=== PATIENT | male | born 1955 | race Caucasian/White ===

== ENCOUNTER 2016-06-25 19:36 | Emergency (ER) | payer MEDICARE ==
[~2016-06-25] VITALS: Ht 180.3 cm; Wt 95.3 kg
[~2016-06-25 19:36] MED LIST: ASPI-231 PO; BUPR75TA4 PO; CARV6.25 PO; CHOL500021 PO; DIVA500T53 PO; LAMO100T44 PO; PRO20T PO; QUET100T46 PO; QUET200T30 PO; SERT-160 PO; TRAZ100T2 PO; VALP250S16 PO; ZIPR80CA8 PO
[2016-06-25 19:45] VITALS: BP 139/93
[2016-06-25] MEDS ORDERED: HYDROmorphone HCL 2 MG/ML VL IM ONE (23:30)
[2016-06-25] MEDS ORDERED: ONDANSETRON HCL 4 MG/2 ML VIAL IM ONE (23:30)
[2016-06-26] MEDS ORDERED: BACITRACIN-POLYMYXIN B TOPICAL OINT UD TOP ONE ×2 (00:12→00:15)
== END 2016-06-26 02:07 | disposition home or self-care (01) ==
LOC: EDUNIT# 19:36 → EDBD 19:36 → ER 19:44
DX: S90.31XA Contusion of right foot, initial encounter (principal); S80.02XA Contusion of left knee, initial encounter; S40.011A Contusion of right shoulder, initial encounter; S80.211A Abrasion, right knee, initial encounter; S90.812A Abrasion, left foot, initial encounter; I25.10 Atherosclerotic heart disease of native coronary artery without angina pectoris; R51 Headache; J44.9 Chronic obstructive pulmonary disease, unspecified; E78.5 Hyperlipidemia, unspecified; I25.2 Old myocardial infarction; Z95.0 Presence of cardiac pacemaker; I50.9 Heart failure, unspecified; F17.210 Nicotine dependence, cigarettes, uncomplicated; V09.20XA Pedestrian injured in traffic accident involving unspecified motor vehicles, initial encounter; Y93.89 Activity, other specified; Y99.8 Other external cause status; Y92.89 Other specified places as the place of occurrence of the external cause; Z79.899 Other long term (current) drug therapy
CPT/HCPCS: 70450; 73020; 73562; 73620; 96372; 99284; J1170; J2405

== ENCOUNTER 2024-06-30 23:51 | Emergency (ER) | payer MEDICARE, OTHER ==
[~2024-06-30] VITALS: Ht 182.9 cm; Wt 113.6 kg
[~2024-06-30 23:51] MED LIST changes: -ASPI-231 PO; +ASPI1TAB20 PO; -CARV6.25 PO; +CARV6.2517 PO; +DIVA-91 PO; -DIVA500T53 PO; -QUET100T46 PO; +QUET100T47 PO; +TRAZ-228 PO; -TRAZ100T2 PO; -VALP250S16 PO; +VALP250S19 PO; +ZIPR80CA43 PO; -ZIPR80CA8 PO
[2024-07-01 00:26] LABS: Basophils # (auto) 0 10 ^3/uL (0-0.2); Basophils % (auto) 0.5 % (0.0-2.0); Eosinophils # (auto) 0.5 10 ^3/uL (0-0.8); Eosinophils % (auto) 5.1 % (0.0-7.0); Hematocrit 43.9 % (41.0-53.0); Hemoglobin 15.1 g/dL (13.5-17.5); Lymphocytes # (auto) 1.3 10 ^3/uL (0.4-5.4); Lymphocytes % (auto) 13.4 % (10.0-50.0); Mean Corpuscular Hemoglobin 29.6 pg (28.0-32.0); Mean Corpuscular Hgb Conc. 34.5 g/dL (32.0-36.0); Mean Corpuscular Volume 85.8 fL (80.0-100.0); Monocytes # (auto) 0.6 10 ^3/uL (0-1.3); Monocytes % (auto) 6.4 % (0.0-12.0); Neutrophils # (auto) 7.3 10 ^3/uL (1.6-8.6); Neutrophils % (auto) 74.6 % (37.0-80.0); Platelet Count (auto) 427 10^3/uL (140-450); Red Blood Cells 5.12 10^6/uL (4.5-5.90); White Blood Cell 9.8 10^3/uL (4.4-10.8)
[2024-07-01 00:42] LABS: Alanine Aminotransferase 24 U/L (7-40); Albumin 4.8 g/dL (3.2-4.8); Alkaline Phosphatase 73 U/L (46-116); Anion Gap 6 (5-15); Aspartate Aminotransferase 13 U/L (13-40); BUN/Creatinine Ratio 16.8 (10.0-20.0); Bilirubin, Total 0.5 mg/dL (0.2-1.0); Blood Urea Nitrogen 16 mg/dL (9-23); Calcium 9.6 mg/dL (8.7-10.4); Carbon Dioxide 28 mmol/L (20-31); Chloride 104 mmol/L (98-107); Potassium 4.4 mmol/L (3.5-5.1); Sodium 138 mmol/L (136-145); Total Protein 6.9 g/dL (5.7-8.2)
[2024-07-01 00:56] LABS: Glucose 113 mg/dL (74-106)
--- NOTE | 2024-07-01 02:21 | ED.PDOC ---
History of Present Illness HPI Comments 68-year-old male brought in by EMS. Patient states he was having hard time sleeping because he felt like he was choking. States his anxiety started to kick in and made him feel more short of breath. 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 States they cut off half portion of his tongue. Since then he has been having trouble with swallowing. States he does see an ENT, he does have an appointment in August. Patient denies any pain with swallowing. States he is typically able to eat but he has not drank fluids while he eats to help the food go down. Chief Complaint: Shortness of Breath Time Seen by MD: 23:59 Primary Care Provider: NONE Reviewed Notes: Nurses Notes Allergies: Coded Allergies: NO KNOWN ALLERGIES (Unverified , 05/15/14) Home Meds Active Scripts Ziprasidone Hydrochloride (Geodon) 80 Mg Cap, 40 MG PO BID, #60 CAP Prov:CHERRY PAL MD 02/01/15 Lamotrigine (Lamotrigine) 100 Mg Tab, 100 MG PO HS, #1 TAB Prov:ERICA MURPHY N.P. 05/16/14 Bupropion Hcl (Wellbutrin) 75 Mg Tab, 100 MG PO DAILY, #1 TAB Prov:ERICA MURPHY N.P. 05/16/14 Reported Medications Quetiapine Fumerate (QUETIAPINE FUMARATE) 100 Mg Tab, 25 MG PO TID for 30 Days, MG 04/30/16 Trazodone Hcl (Trazodone Hcl) 100 Mg Tab, 1 TAB PO HS, #30 TAB 1 Refill 04/29/16 Sertraline Hcl (Sertraline Hcl) 100 Mg Tab, 200 MG PO DAILY, TAB 04/29/16 Cholecalciferol (VITAMIN D) 5,000 Unit Tab, 5000 PO DAILY, TAB 04/29/16 Propranolol HCl (Propranolol HCl) 20 Mg Tab, 20 MG PO BID, TAB discuss with primary MD 04/29/16 Quetiapine Fumerate (Seroquel) 200 Mg Tab, 200 MG PO HS, TAB 04/29/16 Valproate Sodium (Valproic Acid) 250 Mg/5 Ml Syp, 250 MG PO HS, SYP 04/29/16 Divalproex Sodium (Depakote) 500 Mg Tab, 2 TAB PO QHSP, #60 TAB 1 Refill 04/29/16 Carvedilol (Coreg) 6.25 Mg Tab, 1 TAB PO BID, #180 TAB 1 Refill 05/16/14 Aspirin (Aspir-81) 81 Mg Tab, 1 TAB PO DAILY, #30 TAB 5 Refills 05/16/14 Information Source: Patient Mode of Arrival: EMS Past Medical History PAST MEDICAL HISTORY: Anxiety, CAD, CHF, COPD, Dementia, Depression, High Lipids, Liver, HI Surgical History: Pacemaker Family History Family History (Other): PNEUMONIA Social History Smoker: Cigarettes, Chew, Less Than 1 Pack/Day Alcohol: Occasionally Drugs: Denies Drug Use Lives In: Home Constitutional: denies: chills, diaphoresis, fatigue, fever, malaise, sweats, weakness, others EENTM: reports: throat swelling; denies: blurred vision, double vision, ear bleeding, ear discharge, ear drainage, ear pain, ear ringing, eye pain, eye redness, hearing loss, mouth pain, mouth swelling, nasal discharge, nose bleeding, nose congestion, nose pain, photophobia, tearing, throat pain, voice changes, others Respiratory: denies: cough, hemoptysis, orthopnea, SOB at rest, shortness of breath, SOB with excertion, stridor, wheezing, others Cardiovascular: denies: chest pain, dizzy spells, diaphoresis, Dyspnea on exertion, edema, irregular heart beat, left arm pain, lightheadedness, palpitations, PND, syncope, others Gastrointestinal: denies: abdomen distended, abdominal pain, blood streaked bowels, constipated, diarrhea, dysphagia, difficulty swallowing, hematemesis, melena, nausea, poor appetite, poor fluid intake, rectal bleeding, rectal pain, vomiting, others Genitourinary: denies: burning, dysuria, flank pain, frequency, hematuria, incontinence, penile discharge, penile sore, pain, testicle pain, testicle swelling, urgency, others Neurological: denies: dizziness, fainting, headache, left sided numbness, left sided weakness, numbness, paresthesia, pre-existing deficit, right sided numbness, right sided weakness, seizure, speech problems, tingling, tremors, weakness, others Musculoskeletal: denies: back pain, gout, joint pain, joint swelling, muscle pain, muscle stiffness, neck pain, others Integumetry: denies: bruises, change in color, change in hair/nails, dryness, laceration, lesions, lumps, rash, wounds, others Allergic/Immunocompromised: denies: Difficulty Healing, Frequent Infections, Hives, Itching, others Physical Exam General Appearance: No Apparent Distress, Normal HEENT: Normal ENT Inspection, Pharynx Normal, TMs Normal, Other (Partial tongue removal) Neck: Full Range of Motion, Non-Tender, Normal, Normal Inspection Respiratory: Chest Non-Tender, Lungs Clear, No Accessory Muscle Use, No Respiratory Distress, Normal Breath Sounds Cardiovascular: No Edema, No JVD, No Murmur, No Gallop, Normal Peripheral Pulses, Regular Rate/Rhythm Breast Exam: Deferred Gastrointestinal: No Organomegaly, Non Tender, No Pulsatile Mass, Normal Bowel Sounds, Soft Genitalia: Deferred Pelvic: Deferred Rectal: Deferred Extremities: No calf tenderness, Normal capillary refill, Normal inspection, Normal range of motion, Non-tender, No pedal edema Musculoskeletal : Apperance: Normal Neurologic: Alert, cnc grinder II-XII nml as Tested, No Motor Deficits, Normal Affect, Normal Mood, No Sensory Deficits Cerebellar Function: Normal Reflexes: Normal Skin: Dry, Normal Color, Warm Lymphatic: No Adenopathy Was a procedure done? Was a procedure done?: No Differential Dx Considerations may include: Dry mouth, foreign body in the airway, pharyngitis, X-Ray, Labs, Meds, VS Vital Signs Date Time Temp Pulse Resp B/P (MAP) Pulse Ox O2 Delivery O2 Flow Rate FiO2 07/01/24 00:03 98.8 95 20 155/88 (110) 100 Lab Test 07/01/24 00:12 Range/Units White Blood Count 9.8 4.4-10.8 10^3/uL Red Blood Count 5.12 4.5-5.90 10^6/uL Hemoglobin 15.1 13.5-17.5 g/dL Hematocrit 43.9 41.0-53.0 % Mean Corpuscular Volume 85.8 80.0-100.0 fL Mean Corpuscular Hemoglobin 29.6 28.0-32.0 pg Mean Corpuscular Hemoglobin Concent 34.5 32.0-36.0 g/dL Red Cell Distribution Width 15.0 H 11.8-14.3 % Platelet Count 427 140-450 10^3/uL Mean Platelet Volume 6.8 L 6.9-10.8 fL Neutrophils (%) (Auto) 74.6 37.0-80.0 % Lymphocytes (%) (Auto) 13.4 10.0-50.0 % Monocytes (%) (Auto) 6.4 0.0-12.0 % Eosinophils (%) (Auto) 5.1 0.0-7.0 % Basophils (%) (Auto) 0.5 0.0-2.0 % Neutrophils # (Auto) 7.3 1.6-8.6 10 ^3/uL Lymphocytes # (Auto) 1.3 0.4-5.4 10 ^3/uL Monocytes # (Auto) 0.6 0-1.3 10 ^3/uL Eosinophils # (Auto) 0.5 0-0.8 10 ^3/uL Basophils # (Auto) 0 0-0.2 10 ^3/uL Nucleated Red Blood Cells 0.0 % Sodium Level 138 136-145 mmol/L Potassium Level 4.4 3.5-5.1 mmol/L Chloride Level 104 98-107 mmol/L Carbon Dioxide Level 28 20-31 mmol/L Anion Gap 6 5-15 Blood Urea Nitrogen 16 9-23 mg/dL Creatinine 0.95 0.700-1.30 mg/dL Glomerular Filtration Rate Calc 88 >90 mL/min BUN/Creatinine Ratio 16.8 10.0-20.0 Serum Glucose 113 H 74-106 mg/dL Calcium Level 9.6 8.7-10.4 mg/dL Total Bilirubin 0.5 0.2-1.0 mg/dL Aspartate Amino Transferase (AST) 13 13-40 U/L Alanine Aminotransferase (ALT) 24 7-40 U/L Alkaline Phosphatase 73 46-116 U/L Total Protein 6.9 5.7-8.2 g/dL Albumin 4.8 3.2-4.8 g/dL Time of 1ST Reevaluation: 02:20 Reevaluation 1ST: Unchanged Patient Education/Counseling: Diagnosis, Treatment Family Education/Counseling: Diagnosis, Treatment Assigned to Dr. Thomas Change of Shift?: Yes Departure 1 Departure Time of Disposition: 04:33 (Patient's CT scan shows likely residual tumor. Patient is able to tolerate liquids at this time. No acute airway complication. We will discharge patient home with outpatient follow up) Impression: Primary Impression: Throat discomfort Additional Impression: History of cancer Disposition: HOME / SELF CARE / HOMELESS Condition: Stable Additional Instructions: Your CT scan shows possible residual tumor. It is important to follow up with the Ear Nose Throat surgeon as soon as possible. If your symptoms worsen or you have any other concerns please return to the emergency room. Discharged With: Self Critical Care Note Critical Care Time?: No Stability Stability form required: No Heart Score Heart Score: Heart Score Response (Comments) Value History N/A 0 EKG N/A 0 Age N/A 0 Risk Factors N/A 0 Troponin N/A 0 Total 0 ANITA BRADFORD Jul 01, 2024 02:21 ALEX BADILLO MD Jul 01, 2024 04:35
--- NOTE | 2024-07-01 03:58 | DVH ---
HISTORY: neck swelling COMPARISON: None CT NECK WITHOUT CONTRAST INDICATION: neck swelling EXAM DATE: 07/01/2024 02:25 AM COMPARISON: None RADIATION DOSE: CTDIvol: 22.8 mGy, DLP: 672.7 mGy*cm Technique: Noncontrast CT imaging of the neck was obtained with coronal and sagittal reformatted imag es. All CT scans at this medical facility are performed using dose modulation techniques as appropriate t o a performed exam including the following: Automated exposure control was utilized; adjustment of th e MA and/or KV according to patient size; and use of iterative reconstruction technique. FINDINGS: Examination is limited secondary to postsurgical changes, lack of intravenous contrast, and significa nt patient motion. Mucosal retention cyst is noted in the right maxillary sinus. Visualized intracranial structures appe ar unremarkable. There is postsurgical change involving the anterior right and posterior left oral cavity and neck. Residual nodular soft tissue in the expected location of the tongue estimates 4.0 x 2.7 cm. Parotid g lands appear unremarkable. Left submandibular gland appears absent. There are prominent submandibula r lymph nodes measuring up to 1.3 cm in short axis. Assessment of the parapharyngeal soft tissues is limited. Airway appears relatively patent. The image d lung apices appear unremarkable. Moderate to severe degenerative changes of the cervical spine most pronounced from C5 through C7 with endplate osteophytes. Prevertebral soft tissues appear otherwise unremarkable. IMPRESSION: Limited examination secondary to extensive postsurgical changes and lack of intravenous contrast. Sof t tissue in the right oral cavity may represent intentional residual tissue versus recurrence. Promi nent submandibular lymph nodes. Comparison to prior examinations, operative history, and clinical exa m would be of benefit. CT with contrast is recommended for further evaluation.
[2024-07-01 05:15] VITALS: BP 148/87; PULSE 84; RESP 18; TEMP 98.3; O2SAT 96
== END 2024-07-01 05:15 | disposition home or self-care (01) ==
LOC: ER 23:51 → EDBD 23:51 → ER 07-01 05:15
DX: R07.0 Pain in throat (principal); F32.A Depression, unspecified; J44.9 Chronic obstructive pulmonary disease, unspecified; F03.93 Unspecified dementia, unspecified severity, with mood disturbance; I25.10 Atherosclerotic heart disease of native coronary artery without angina pectoris; I50.9 Heart failure, unspecified; F17.210 Nicotine dependence, cigarettes, uncomplicated; F03.94 Unspecified dementia, unspecified severity, with anxiety; I25.2 Old myocardial infarction; Z85.810 Personal history of malignant neoplasm of tongue; Z95.0 Presence of cardiac pacemaker; Z79.899 Other long term (current) drug therapy
CPT/HCPCS: 36415; 70490; 80053; 85025